=== PATIENT | female | born 1980 | race Caucasian/White ===

== ENCOUNTER 2017-05-17 15:56 | Emergency (ER) | payer MEDICAID ==
[2017-05-17] MEDS: METOCLOPRAMIDE 10 MG TAB PO (20:55)
[2017-05-17] MEDS: DIPHENHYDRAMINE 25 MG CAP PO (20:55)
[2017-05-17] MEDS: KETOROLAC 15 MG INJ IM (20:56)
== END 2017-05-17 21:51 | disposition home or self-care (01) ==
LOC: FTE 15:56
DX: R51 Headache (principal); M54.2 Cervicalgia
CPT/HCPCS: 96372; 99284-25

== ENCOUNTER 2017-05-29 21:09 | Emergency (ER) | payer MEDICAID | END 2017-05-29 21:45 | disposition home or self-care (01) | LOC: E/R 21:09 | DX: R05 Cough (principal); R50.9 Fever, unspecified; M54.9 Dorsalgia, unspecified; R09.81 Nasal congestion | CPT/HCPCS: 99284 ==

== ENCOUNTER 2017-11-06 18:49 | Emergency (ER) | payer MEDICAID ==
[2017-11-06] MEDS: ONDANSETRON 4 MG INJ IV ×2 (20:55→21:03)
[2017-11-06] MEDS: morphine 4 MG/ML VIAL IV (20:56)
[2017-11-06] MEDS: SOD CHLORIDE 0.9% 1,000 ML IV (20:56)
[2017-11-06 20:58] LABS: ADD MAN DIFF? NO
[2017-11-06 21:00] LABS: BASOPHILS % 0.4 % (0.0-2.0); EOSINOPHILS # 0.1 10^3/ul (0.0-0.5); EOSINOPHILS % 1.3 % (0.0-7.0); HEMATOCRIT 38.9 % (37.0-47.0); HEMOGLOBIN 13.6 g/dl (12.0-16.0); IMMATURE GRANS #M 0.04 10^3/ul; IMMATURE GRANS % (M) 0.4 %; LYMPHOCYTES # 2.5 10^3/ul (0.8-2.9); LYMPHOCYTES % 22.4 % (15.0-51.0); MEAN CORPUSCULAR HEMOGLOBIN 28.3 pg (29.0-33.0); MEAN CORPUSCULAR VOLUME 80.9 fl (82.0-101.0); MONOCYTE # 0.4 10^3/ul (0.3-0.9); MONOCYTES % 3.8 % (0.0-11.0); NEUTROPHIL # 7.8 10^3/ul (1.6-7.5); NEUTROPHILS % 71.7 % (39.0-77.0); PLATELET COUNT 250 10^3/UL (140-415); RED BLOOD COUNT 4.81 10^6/ul (4.20-5.40); RED CELL DISTRIBUTION WIDTH 12.7 % (11.5-14.5)
[2017-11-06 21:00] LABS: WHITE BLOOD COUNT 10.9 10^3/ul (4.8-10.8)
[2017-11-06 21:05] LABS: ADD UMIC NO; UR ASCORBIC ACID NEGATIVE (NEGATIVE); UR BILIRUBIN (Dip) NEGATIVE (NEGATIVE); UR BLOOD (Dip) NEGATIVE (NEGATIVE); UR CLARITY CLEAR (CLEAR); UR COLOR YELLOW (YELLOW); UR GLUCOSE (Dip) NEGATIVE (NEGATIVE); UR KETONES (Dip) NEGATIVE (NEGATIVE); UR LEUKOCYTE ESTERASE (Dip) NEGATIVE Leu/ul (NEGATIVE); UR NITRITE (Dip) NEGATIVE (NEGATIVE); UR SPECIFIC GRAVITY (Dip) 1.015 (1.003-1.030); UR TOTAL PROTEIN (Dip) NEGATIVE (NEGATIVE); UR UROBILINOGEN (Dip) NEGATIVE (NEGATIVE)
[2017-11-06 21:19] LABS: ALANINE AMINOTRANSFERASE 17 IU/L (13-69); ALBUMIN 4.8 g/dl (3.3-4.9); ALBUMIN/GLOBULIN RATIO 1.26; ALKALINE PHOSPHATASE 68 IU/L (42-121); AMYLASE 69 U/L (11-123); ANION GAP 17 (8-16); ASPARTATE AMINO TRANSFERASE 28 IU/L (15-46); BILIRUBIN,INDIRECT 0.7 mg/dl (0-1.1); BILIRUBIN,TOTAL 0.7 mg/dl (0.2-1.3); BLOOD UREA NITROGEN 13 mg/dl (7-20); CALCIUM 9.6 mg/dl (8.4-10.2); CARBON DIOXIDE 23 mmol/L (21-31); CHLORIDE 104 mmol/L (97-110); CREATININE 0.72 mg/dl (0.44-1.00); GLUCOSE 108 mg/dl (70-220); LIPASE 75 U/L (23-300); POTASSIUM 3.8 mmol/L (3.5-5.1); SODIUM 140 mmol/L (135-144); TOTAL PROTEIN 8.6 g/dl (6.1-8.1)
[2017-11-06] MEDS: SOD CHLORIDE 0.9% 100 ML (21:47)
[2017-11-06] MEDS: IOHEXOL 300MG/ML 150 ML BTL (21:47)
[2017-11-06] MEDS: HYDROmorphONE 0.5 MG/0.5 ML SYG IV (22:29)
== END 2017-11-07 01:25 | disposition home or self-care (01) ==
LOC: FTE 11-07 01:25
DX: R10.84 Generalized abdominal pain (principal)
CPT/HCPCS: 74177; 76705; 76830; 76856; 80053; 81003; 81025; 82150; 83690; 85025; 87086; 96374; 96375; 99285-25

== ENCOUNTER 2018-03-12 19:13 | Emergency (ER) | payer MEDICAID ==
[2018-03-12] MEDS: ONDANSETRON (ODT) 4 MG TAB ODT (20:31)
[2018-03-12] MEDS: HYDROCODONE/APAP (10/325) TAB PO (20:31)
== END 2018-03-12 21:01 | disposition home or self-care (01) ==
LOC: FTE 19:13
DX: R51 Headache (principal); R11.0 Nausea
CPT/HCPCS: 99283; Z7502

== ENCOUNTER 2018-05-31 20:26 | Emergency (ER) | payer MEDICAID ==
[2018-06-01] MEDS: ALBUTEROL 0.083% (NEB) 2.5 MG/3 ML AMP HHN (00:48)
[2018-06-01] MEDS: AZITHROMYCIN 250 MG TAB PO (01:08)
[2018-06-01] MEDS: OSELTAMIVIR 75 MG CAP PO (01:08)
[2018-06-01] MEDS: HYDROCODONE/HOMATROPINE 5ML CUP PO ×2 (01:08→02:26)
== END 2018-06-01 02:53 | disposition home or self-care (01) ==
LOC: FTE 20:26
DX: R05 Cough (principal); R50.9 Fever, unspecified
CPT/HCPCS: 71046; 94664; 99283-25

== ENCOUNTER 2018-06-19 22:15 | Emergency (ER) | payer MEDICAID ==
[2018-06-20] MEDS: IBUPROFEN 600 MG TAB PO (05:21)
== END 2018-06-20 05:21 | disposition home or self-care (01) ==
LOC: FTE 22:15
DX: R51 Headache (principal)
CPT/HCPCS: 70450; 99284-25

== ENCOUNTER 2018-10-25 21:12 | Emergency (ER) | payer MEDICAID ==
[2018-10-25] MEDS: SOD CHLORIDE 0.9% 1,000 ML IV (23:07)
[2018-10-25] MEDS: morphine 4 MG/ML VIAL IV (23:07)
[2018-10-25] MEDS: ONDANSETRON 4 MG INJ IV (23:08)
[2018-10-25] MEDS: LIDOCAINE/MYLANTA 40 ML BTL PO (23:16)
[2018-10-25] MEDS: KETOROLAC 30 MG INJ IV (23:16)
[2018-10-25] MEDS: FAMOTIDINE 20 MG INJ IV (23:16)
[2018-10-25 23:19] LABS: ADD MAN DIFF? NO
[2018-10-25 23:23] LABS: BASOPHIL # 0.1 10^3/ul (0.0-0.1); BASOPHILS % 0.4 % (0.0-2.0); EOSINOPHILS # 0.2 10^3/ul (0.0-0.5); EOSINOPHILS % 1.9 % (0.0-7.0); HEMOGLOBIN 13.8 g/dl (12.0-16.0); LYMPHOCYTES # 2.9 10^3/ul (0.8-2.9); LYMPHOCYTES % 25.3 % (15.0-51.0); MEAN CORPUSCULAR HEMOGLOBIN 28.3 pg (29.0-33.0); MEAN CORPUSCULAR HGB CONC 35.4 g/dl (32.0-37.0); MEAN CORPUSCULAR VOLUME 80.1 fl (82.0-101.0); MEAN PLATELET VOLUME 11.8 fl (7.4-10.4); MONOCYTE # 0.5 10^3/ul (0.3-0.9); MONOCYTES % 4.7 % (0.0-11.0); NEUTROPHIL # 7.7 10^3/ul (1.6-7.5); NEUTROPHILS % 67.2 % (39.0-77.0); PLATELET COUNT 257 10^3/UL (140-415); RED BLOOD COUNT 4.87 10^6/ul (4.20-5.40); RED CELL DISTRIBUTION WIDTH 12.5 % (11.5-14.5)
[2018-10-25 23:23] LABS: WHITE BLOOD COUNT 11.5 10^3/ul (4.8-10.8)
[2018-10-25 23:33] LABS: ADD UMIC YES; UR ASCORBIC ACID NEGATIVE (NEGATIVE); UR BACTERIA FEW /HPF (NONE SEEN); UR BILIRUBIN (Dip) NEGATIVE (NEGATIVE); UR BLOOD (Dip) 1+ mg/dL (NEGATIVE); UR CLARITY CLEAR (CLEAR); UR COLOR STRAW (YELLOW); UR GLUCOSE (Dip) NEGATIVE (NEGATIVE); UR KETONES (Dip) NEGATIVE (NEGATIVE); UR LEUKOCYTE ESTERASE (Dip) NEGATIVE Leu/ul (NEGATIVE); UR NITRITE (Dip) NEGATIVE (NEGATIVE); UR RBC 0 /HPF (0-5); UR SPECIFIC GRAVITY (Dip) 1.009 (1.003-1.030); UR SQUAMOUS EPITHELIAL CELL FEW /HPF (FEW); UR TOTAL PROTEIN (Dip) NEGATIVE (NEGATIVE); UR UROBILINOGEN (Dip) NEGATIVE (NEGATIVE); UR WBC 3 /HPF (0-5)
[2018-10-26 00:27] LABS: ALANINE AMINOTRANSFERASE 15 IU/L (13-69); ALBUMIN 4.5 g/dl (3.3-4.9); ALBUMIN/GLOBULIN RATIO 1.18; ALKALINE PHOSPHATASE 62 IU/L (42-121); ANION GAP 11 (5-13); ASPARTATE AMINO TRANSFERASE 22 IU/L (15-46); BILIRUBIN,INDIRECT 0.8 mg/dl (0-1.1); BILIRUBIN,TOTAL 0.8 mg/dl (0.2-1.3); BLOOD UREA NITROGEN 14 mg/dl (7-20); CALCIUM 9.7 mg/dl (8.4-10.2); CARBON DIOXIDE 23 mmol/L (21-31); CHLORIDE 107 mmol/L (97-110); CREATININE 0.73 mg/dl (0.44-1.00); Estimated GFR > 60 mL/min (>60); GLUCOSE 127 mg/dl (70-220); LIPASE 94 U/L (23-300); POTASSIUM 3.8 mmol/L (3.5-5.1); SODIUM 141 mmol/L (135-144); TOTAL PROTEIN 8.3 g/dl (6.1-8.1)
[2018-10-26 00:39] LABS: TROPONIN-I < 0.012 ng/ml (0.000-0.120)
[2018-10-26] MEDS: IOHEXOL 300MG/ML 150 ML BTL (00:53)
[2018-10-26] MEDS: SOD CHLORIDE 0.9% 100 ML (00:53)
[2018-10-26] MEDS: HYDROmorphONE 2 MG/ML SYG IV (01:52)
== END 2018-10-26 02:10 | disposition home or self-care (01) ==
LOC: FTE 10-26 02:10
DX: R10.11 Right upper quadrant pain (principal)
CPT/HCPCS: 36415; 71045; 74177; 76856; 80053; 81001; 81025; 83690; 84484; 85025; 93005; 96361; 96374; 96375; 99285-25